=== PATIENT | male | born 1980 | race Caucasian/White ===

== ENCOUNTER 2025-05-28 20:57 | Emergency (ER) | payer OTHER ==
[2025-05-28] MEDS: Bacitracin Oint 1 GM U/D Packet TOP ONE (22:21)
[2025-05-28] MEDS: Lidocaine 1% with EPINEPHrine 1:100,000 20 ML MDV INJECT ONE (22:22)
[2025-05-28] MEDS: Diphtheria,Pertussis(Acell),Tetanus Vaccine 0.5 ML Syringe IM ONE (22:24)
== END 2025-05-28 22:48 | disposition home or self-care (01) ==
LOC: JP.ED 20:57
DX: S61.214A Laceration without foreign body of right ring finger without damage to nail, initial encounter (principal); Z79.899 Other long term (current) drug therapy; Z23 Encounter for immunization; W25.XXXA Contact with sharp glass, initial encounter; Y93.89 Activity, other specified
CPT/HCPCS: 12001; 90471; 90715; 99282; 99283; J2004